=== PATIENT | female | born 1995 | race Caucasian/White ===

== ENCOUNTER → 2022-03-10 | Outpatient (CLI) | payer OTHER ==
[~2022-03-10] VITALS: Ht 157.5 cm; Wt 76.8 kg
[~2022-03-10] MED LIST: ASPIRIN 81M81 MG/TA2; PRENATAL TABLET
[2022-03-10 15:15] VITALS: BP 110/62; PULSE 89; TEMP 981
--- NOTE | 2022-03-10 15:57 | NUR ---
FHR REACTIVE AND AMNI TRACE NEG; WILL D/C AFTER REACTIVE FHR
== END ==
LOC: LDRO 14:45
DX: Z34.90 Encounter for supervision of normal pregnancy, unspecified, unspecified trimester (principal); Z3A.00 Weeks of gestation of pregnancy not specified

== ENCOUNTER 2022-04-08 00:53 | Outpatient (CLI) | payer OTHER ==
[~2022-04-08] VITALS: Ht 157.5 cm; Wt 75.9 kg
--- NOTE | 2022-04-08 01:00 | NUR ---
0100- PT PRESENTS TO LDR COMPLAINING OF CRAMPING AND DECREASED MOVEMENT, AMBULATORY TO TRIAGE 1, CHANGED INTO GOWN. 0110- EFM X2 APPLIED. DR CHAPA TO BEDSIDE. PT DENIES LEAKING FLUID, STATES SHE IS HAVING SOME SPOTTING FOR THE LAST WEEK, IS FEELING THE BABY MOVE LESS. STATES SHE HAS BEEN HAVING SOME CRAMPING TODAY WELL. DR CHAPA DISCUSSES PLAN OF CARE WITH PT. 0115- SVE BY DR CHAPA WITH ANTERIOR CERVIX. DR CHAPA DISCUSSES HYDRATION AND REST WITH PT, ANSWERS PT AND QUESTIONS. 0120- DR CHAPA STATES SHE IS OK WITH THE STRIP THAT HAS BEEN OBTAINED IT IS CURRENTLY REACTIVE. SHE STATES PT MAY BE DISMISSED AT THIS TIME. NURSING HISTORY AND ADMISSION ASSESSMENT COMPLETE. 0130- PT OFF MONITORS FOR DISMISSAL. 0147- DISMISSAL INSTRUCTIONS GIVEN AND PT VERBALIZES UNDERSTANDING. PT DISMISSED AMBULATORY TO HOME ACCOMPANIED BY SPOUSE.
[2022-04-08 01:30] VITALS: BP 132/71; PULSE 85; TEMP 97.8
== END 2022-04-08 01:47 | disposition home or self-care (01) ==
LOC: LDRO 00:53
DX: O36.8130 Decreased fetal movements, third trimester, not applicable or unspecified (principal); O47.03 False labor before 37 completed weeks of gestation, third trimester; Z3A.34 34 weeks gestation of pregnancy

== ENCOUNTER 2022-04-11 10:05 | Outpatient (CLI) | payer OTHER ==
[~2022-04-11] VITALS: Ht 157.5 cm; Wt 77.3 kg
[2022-04-11 11:00] VITALS: BP 117/62; PULSE 87
[2022-04-13] VITALS (319 sets, daily range): O2SAT 85–100
== END 2022-04-11 13:30 | disposition home or self-care (01) ==
LOC: LDRO 10:05 → LDR 10:15 → LDRO 13:30
DX: O47.03 False labor before 37 completed weeks of gestation, third trimester (principal); Z3A.34 34 weeks gestation of pregnancy
CPT/HCPCS: OP

== ENCOUNTER 2022-04-11 16:53 | Inpatient (IN) | payer OTHER ==
[2022-04-11] VITALS (9 sets, daily range): BP systolic 102–120; BP diastolic 55–68; PULSE 83–112; TEMP 98.2–98.7
[~2022-04-11] VITALS: Ht 157.6 cm; Wt 77.4 kg
--- NOTE | 2022-04-11 16:55 | NUR ---
Presents to labor and delivery. States has had some bleeing and clots since I was there. Assessment done, questions offered and answered. Pictures on phone were shown to this nurse. Small cloted noted with mild to moderate amount of bleeding noted on toilet paper.
--- NOTE | 2022-04-11 17:30 | NUR ---
Rests in bed, alert. Denies any pain or discomfort at this time.
--- NOTE | 2022-04-11 18:50 | NUR ---
LR to LFA iv site @ 125cc/hr per pump after explaination to pt and spouse. 1900 Procardia 20mg po. Celestone 12mg to R
[2022-04-11 19:05] LABS: MEAN CELL VOLUME 89 fl (80.0-100.0); MEAN CORPUSCULAR HEMOGLOBIN 30 pg (27-31); MEAN CORPUSCULAR HGB CONC 34 g/dl (33.0-37.0); PLATELET COUNT 358 K/mm3 (130-400); RED BLOOD COUNT 3.63 M/mm3 (4.10-5.30); REDCELL DISTRIBUTION WIDTH-CV 13.5 % (11.5-14.5)
[2022-04-11 19:08] LABS: HEMATOCRIT 32.2 % (37.0-47.0)
--- NOTE | 2022-04-11 19:37 | NUR ---
Dr Serrano into room. Discusses plan of care with pt and spouse. [address] Serrano, vaginal/cervical swabs with BRB, 'stringy' See Dr Serrano's notes. [address] Serrano 1945 Dr Serrano discusses new plan of care options with pt and spouse.
[2022-04-12] VITALS (731 sets, daily range): BP systolic 70–183; BP diastolic 49–133; PULSE 106–185; TEMP 97.4–98.1; O2SAT 89–100
--- NOTE | 2022-04-12 01:15 | NUR ---
Pt reports inreased pain with contractions, requesting epidural. SVE as noted. 0125 Anesthesia notified of request for epidural.
--- NOTE | 2022-04-12 01:40 | NUR ---
Judd SECY into room for epidural placement. See anesthesia record. Single shot 0146. 0158 Nausea, BP 90/51 P164, 0205 O2 @ 8l/mask per pt request stating "I don't feel very well" 0216 Ephedrine 10mg IV push. 0218 Judd SECY into room. See anesthesia record. HOB down. 0225 BP 151/79 P 97. 0230 BP 116/55 P162 0235 BP 101/55 P166 0240 BP 104/71 P153
--- NOTE | 2022-04-12 02:16 | NUR ---
EPIDURAL TURNED OFF
--- NOTE | 2022-04-12 02:20 | NUR ---
Judd RIVET TOSSER turns epidural back on. 0223D.Tan RIVET TOSSER out of room 0228pt pulse rate climbing 150-160. Judd RIVET TOSSER called to come back into room. 0229 Judd RIVET TOSSER into room. See anesthesia record for med dosing.
--- NOTE | 2022-04-12 02:40 | NUR ---
Judd CONTROL TECHNICIAN continues either in room or at L&D desk monitoring HR and BP's.
--- NOTE | 2022-04-12 02:50 | NUR ---
Judd DOCTOR OF PHARMACY orders stat EKG 0255 RT here for stat EKG. 0300 Judd DOCTOR OF PHARMACY asks for Hospitalist. Restaurant Hospitality Manager notified.
--- NOTE | 2022-04-12 03:05 | NUR ---
Hospitalist arrives on unit, reviews EKG and pt history, requests ICU assistance for cardiac monitoring. 0315 Dr Serrano on unit.
--- NOTE | 2022-04-12 03:47 | NUR ---
Adenosine 6 mg IV push by FOOD SERVICE AIDE. Dr Serrano, Hospitalist, ICU nurse, RT continue in room with this RN. Pt on jewel diameter gauger, Hospitalist and ICU reviewing cardiac tracing. Judd JARQUIN continues in room, monitoring and treating BP's.See anesthesia record
[2022-04-12 03:55] LABS: HEMOGLOBIN 10.8 g/dl (12.5-16.0); MEAN CELL VOLUME 89 fl (80.0-100.0); MEAN CORPUSCULAR HEMOGLOBIN 30 pg (27-31); MEAN CORPUSCULAR HGB CONC 34 g/dl (33.0-37.0); MEAN PLATELET VOLUME 9.7 fl (7.4-10.4); PLATELET COUNT 330 K/mm3 (130-400); RED BLOOD COUNT 3.56 M/mm3 (4.10-5.30); REDCELL DISTRIBUTION WIDTH-CV 13.4 % (11.5-14.5)
[2022-04-12 03:56] LABS: HEMATOCRIT 31.8 % (37.0-47.0)
--- NOTE | 2022-04-12 03:57 | NUR ---
ADENOSINE 12MG IV push by ASSISTANT TO THE CEO. Hospitalist, Dr Serrano, ICU Nurse, ER charge RT jerez D Smith NUCLEAR FUELS RECLAMATION ENGINEER and this RN continue in room. This RN and Dr Serrano monitoring/assessing FHT's, NUCLEAR FUELS RECLAMATION ENGINEER monitoring/treating BP's, all others monitoring/ assessing maternal cardiac tracing. FHT's continue Category 1.
--- NOTE | 2022-04-12 04:10 | NUR ---
pt deep breathing, denies chest pain or chortness of breath, reports "it's the contractions" 0412 Labetolol 10mg IV 0421 Labetolol 10mg IV
[2022-04-12 04:14] LABS: ALBUMIN 2.4 gm/dL (3.5-5.0); BILIRUBIN,TOTAL 0.4 mg/dL (0.2-1.2); CALCIUM 9.1 mg/dL (8.4-10.2); CREATININE, serum 0.74 mg/dL (0.57-1.11); MAGNESIUM 1.4 mg/dL (1.6-2.6); POTASSIUM 3.7 mmol/L (3.5-4.5); TOTAL PROTEIN 6.1 gm/dL (6.2-8.1)
[2022-04-12 04:34] LABS: TSH w REFLEX 0.38 uIU/mL (0.350-4.940)
--- NOTE | 2022-04-12 05:00 | NUR ---
MagSulfate bolus piggybacked into NS bolus to L forearm site. LR bolus to L wrist site stopped.
--- NOTE | 2022-04-12 05:30 | NUR ---
Hospitalist, ICU staff, RT, Dr Serrano, and Pavan CULLET TRUCKER out of room, this RN continues at bedside.
--- NOTE | 2022-04-12 05:30 | NUR ---
Received call from hospitalistKalyn, at approximately 0320 requesting assistance at bedside. Upon arrival, patient noted to be tachycardic, with rates 160-180s. Patient appears diaphoretic upon exam. SBPs high 90s to low 100s. Patient is alert and oriented; conversing normally with staff. She does not appear to be overly anxious or SOB. IVF infusing via gravity tubing, wide open. OB nurseMona, at bedside. Kalyn on the phone with Dr. Hartmann at time of this RN's arrival. Crash cart at bedside; defib pads in place. Orders received to administer 6mg IV dose of adenosine, which was given with Kalyn's assistance at roughly 0347 with no improvement in HR. Patient dosed with an additional 12mg adenosine IV with Kalyn's assistance at approximately 0355; transient improvement in HR noted for 3-4 seconds, however, patient then became significantly tachycardic once more with rates up to the 200s. RT at bedside to obtain 12-lead EKG. Orders received to administer 10mg IV labetolol, which was given by this RN around 0420, with a repeat dose administered at approximately 0430 by ED RN, Ly. Again, patient had temporary improvment in HR for about 4-5 seconds before resuming rates of 180s. Kalyn contacted Dr. Hartmann once more. Kalyn consults ED physician Dr. Uribe and OB physician Dr. Serrano, both of which are outside patient's room. Orders received to administer 0.5mg IV digoxin, which was given by this RN at around 0449. Orders also received to replace magnesium for a level of 1.4; 4g replacement initiated by Ly, ED RN at 0500. Per Kalyn, Dr. Hartmann recommends finishing magnesium replacment. Patient may require electrical cardioversion or early delivery if patient unable to convert to sinus rhythm chemically. Throughout the above interventions, OB nurseMona, monitoring patient and baby's vitals.
--- NOTE | 2022-04-12 06:00 | NUR ---
NS complete, LR to LFA site. Pt relaxed social, deep breathes with contractions. This RN to L&D desk. Dr Serrano continues on L&D unit.
--- NOTE | 2022-04-12 06:20 | NUR ---
0620- This RN assumes care of Pt. Decision made by Dr Serrano to procede with repeat section. Pt prepared for sugery. MILKA Whaley at bedside. Pt calm and cooperative with POC. 0640- EFM and TOCO off. Pt transported to OR via bed by this RN and Leeanne, commissary helper.
--- NOTE | 2022-04-12 09:35 | NUR ---
0849- Mala, RT at bedside in PACU for EKG. 0920- Dr Billings and operations support coordinator x2 at bedside in PACU, evaluation and POC explained. Plan to transfer to ICU for treatment. Pt placed on TELE, monitored by ICU staff. Dr Serrano at bedside also. 0919- Pt transported to Nursery via bed, okayed by . Dr Stewart, Hydraulic Hammer Operator at infant's bedside. Updates family on status and POC.
--- NOTE | 2022-04-12 09:45 | NUR ---
Arrived to the unit from OB. Patient alert and oriented and in no distress upon arrival. Denies any shortness of breath or chest pain and reports that she cannot feel that her heart is beating very quickly. Attached to all monitors and will start IV amiodarone per cardiology.
--- NOTE | 2022-04-12 09:50 | NUR ---
0950- Pt report provided to JESSA RUGGIERO.
--- NOTE | 2022-04-12 10:15 | NUR ---
1015- Pt transfered to PACU via bed. Fundus firm, half dollar sized clot noted with massage. Pericare provided. Pads changed. Area of shadowing noted on dressing, marked by this RN. Washcloth placed over area and abd binder replaced. Dent emptied. 1025- Pt transforted to ICU via bed by this RN and BALTAZAR Gomes. Pt tolerated well.
--- NOTE | 2022-04-12 11:55 | NUR ---
Confirmed with Dr. Billings that patient can eat at this time and will plan possible cardioversion for tomorrow. Ok to take PO aspirin while receiving Toradol IV.
--- NOTE | 2022-04-12 19:15 | NUR ---
Received report from BALTAZAR Morales.
--- NOTE | 2022-04-12 20:00 | NUR ---
Patient resting quietly in bed. On the phone with family. HR low 100s to 120s, irregular. Continues to receive amio drip. See IV drip titrations. All other vitals within normal limits. She reports improved pain since prior PRN medication administration. Continues to wear abdominal binder. ABD pad to midline incision with small amount of drainage noted.
[2022-04-13] VITALS (318 sets, daily range): BP systolic 95–120; BP diastolic 57–81; PULSE 74–167; TEMP 97.5–98.2; O2SAT 80–100
[2022-04-13 05:45] LABS: BASO # 0.1 K/mm3 (0.0-0.2); BASO % 0.3 % (0.0-2.0); EOS # 0.1 K/mm3 (0.0-0.7); EOS % 0.3 % (0.0-4.0); GRAN # 14.3 K/mm3 (1.4-6.5); GRAN % 75.6 % (42.2-75.2); LYMPH # 3.1 K/mm3 (1.2-3.4); LYMPH % 16.5 % (20.0-51.0); MEAN CELL VOLUME 93 fl (80.0-100.0); MEAN CORPUSCULAR HGB CONC 33 g/dl (33.0-37.0); MEAN PLATELET VOLUME 9.5 fl (7.4-10.4); MONO # 1.3 K/mm3 (0.1-0.6); MONO % 6.9 % (1.7-9.3); PLATELET COUNT 325 K/mm3 (130-400); RED BLOOD COUNT 3.22 M/mm3 (4.10-5.30)
[2022-04-13 05:56] LABS: CALCIUM 8.4 mg/dL (8.4-10.2); CREATININE, serum 0.67 mg/dL (0.57-1.11); MAGNESIUM 1.6 mg/dL (1.6-2.6); POTASSIUM 4.5 mmol/L (3.5-4.5)
[2022-04-13 05:57] LABS: HEMATOCRIT 29.8 % (37.0-47.0); HEMOGLOBIN 9.8 g/dl (12.5-16.0); MEAN CORPUSCULAR HEMOGLOBIN 30 pg (27-31)
--- NOTE | 2022-04-13 08:11 | NUR ---
RECEIVED REPORT FROM BALTAZAR CARROLL; PATIENT CURRENTLY RESTING IN BED WITH HEART RATE CONTROLLED BUT STILL IN AFIB WITH PLANS TO DO A CARDIOVERSION THIS MORNING. OTHER VITAL SIGNS ARE WITHIN NORMAL LIMITS AND AMIO IS CURRENTLY RUNNING AT THE HALF DOSE OF 0.5 MG/MIN.
[2022-04-13] MEDS ORDERED: CORDARONE200 MG/TAB PO (09:05)
--- NOTE | 2022-04-13 09:28 | NUR ---
oyster worker met with patient to complete intake. Patient had a viable baby boy via c section yesterday. Baby sent to [facility]. Due to development of Afib, patient brought to the ICU. Patient reports that she lives at home with her who is active duty and 3 children. Patient is independent with her ADL's and does not utilize any DME to assist with mobility. PCP is and she utilizes [facility] in [place] for prescriptions. Patient is scheduled to transfer back to the OB unit later today.
--- NOTE | 2022-04-13 16:20 | NUR ---
Pt arrived on unit via wheelchair from ICU. Pt ambulatory to bed. Oriented to room, bed and call light within reach. Plan of care reviewed.
--- NOTE | 2022-04-13 18:30 | NUR ---
Report recieved. Resting in bed at this time. Requested to ambulate to restroom. Assisted to sit on the side of the bed. Patient states, "it is pulling" and remains to sit dangled on the side of the bed while holding abd. Patient states, "the pain is to much, I can't get up." Assist with positioning back into bed. ABD binder in place. INC dressing remains clean, dry and intact. 1849 - Dr. Winn notified of patient's pain at this time. Patient states she is unable to ambulate due to inability to tolerate the 10/10 pain. Previously was recieving Morphin, toradol and percocet. Last recieved a percocet at 1600. Requested to increase percocet from 1 tab [address] Winn ordered to increase PO Percocet to 7.5mg x2 tabs Q4 hours PRN. 1899 - Patient updated on change in medications. Reports an upset stomach and requested to sit on bedpan. Patient had a small amount of diarrhea in the brief she was wearing, perineum care provided and bedpan placed. Voided 300mls at this time. No futher diarrhea while on the bedside. 1929 - VS and assessment completed. Percocet administered. Lights dimmed, going to pump.
--- NOTE | 2022-04-13 21:00 | NUR ---
Reports pain has improved. Assisted with standing at bedside. Reports some pulling in her incision but reports that it is tolerable. Ambulated slowly throughout room, states this was helpful with discomfort/pain. Bandage over incision removed at this time, incision edges well approximated with steri strips in place. Ambulated to restroom, voided 350mls. Returned to bed at this time without assistance. Medications administered per order. Lights dimmed, plans to pump.
[2022-04-14 03:30] VITALS: BP 112/64; PULSE 92; TEMP 98.2
[2022-04-14 08:30] VITALS: BP 105/58; PULSE 85; TEMP 97.9
[2022-04-14] MEDS ORDERED: PERCOCET 325 MG1 TA2 PO (08:39)
[2022-04-14] MEDS ORDERED: IBU600 MG PO (08:39)
[2022-04-14] MEDS ORDERED: CORDARONE200 MG/TAB PO (08:39)
[2022-04-14] MEDS ORDERED: FERRO-TIME325 MG PO (08:59)
--- NOTE | 2022-04-14 10:30 | NUR ---
Discharge instructions and follow up care reviewed with pt. Pt verbalized an understanding, agreed with the plan and states no questions or concerns at this time.
== END 2022-04-14 11:40 | disposition home or self-care (01) | DRG 786 ==
LOC: LDRO 16:53 → LDR 18:30 → LDRO 04-12 01:08 → LDR 04-12 01:09 → ICU 04-12 01:09 → OB 04-13 16:38
PROVIDERS: Internal Medicine Adult Congenital Heart Disease; Obstetrics & Gynecology; Student in an Organized Health Care Education/Training Program; ADMIT Obstetrics & Gynecology
PROC: 10D00Z1 Extraction of Products of Conception, Low, Open Approach (ICD-10-PCS; principal; 2022-04-12)
DX: O99.42 Diseases of the circulatory system complicating childbirth (principal); O60.14X0 Preterm labor third trimester with preterm delivery third trimester, not applicable or unspecified; O44.43 Low lying placenta NOS or without hemorrhage, third trimester; O99.354 Diseases of the nervous system complicating childbirth; O99.344 Other mental disorders complicating childbirth; F41.9 Anxiety disorder, unspecified; F32.A Depression, unspecified; I48.0 Paroxysmal atrial fibrillation; I08.1 Rheumatic disorders of both mitral and tricuspid valves; E87.6 Hypokalemia; J45.20 Mild intermittent asthma, uncomplicated; O99.52 Diseases of the respiratory system complicating childbirth; I25.10 Atherosclerotic heart disease of native coronary artery without angina pectoris; I95.9 Hypotension, unspecified; K21.9 Gastro-esophageal reflux disease without esophagitis; O99.62 Diseases of the digestive system complicating childbirth; G43.909 Migraine, unspecified, not intractable, without status migrainosus; E83.42 Hypomagnesemia; O99.284 Endocrine, nutritional and metabolic diseases complicating childbirth; O90.81 Anemia of the puerperium; D64.9 Anemia, unspecified; Z88.0 Allergy status to penicillin; Z37.0 Single live birth; Z86.16 Personal history of COVID-19; Z3A.35 35 weeks gestation of pregnancy; Z79.82 Long term (current) use of aspirin; Z88.2 Allergy status to sulfonamides; Z90.89 Acquired absence of other organs
CPT/HCPCS: OP; J0153; J0282; J0690; J0702; J1160; J1885; J2250; J2270; J2370; J2400; J2405; J2590; J2795; J3010; J3475; J7030; J7050; J7060; J7120

== ENCOUNTER 2023-09-12 08:20 | Outpatient (CLI) | payer OTHER ==
[~2023-09-12] VITALS: Ht 157.5 cm; Wt 85.2 kg
[~2023-09-12 08:20] MED LIST changes: +CORDARONE200 MG/TAB PO; +FERRO-TIME325 MG PO; +IBU600 MG PO; +PERCOCET 325 MG1 TA2 PO
[2023-09-12] MEDS ORDERED: KLONOPIN 1MG1 MG PO (09:04)
[2023-09-12] MEDS ORDERED: ABILIFY2 MG PO (09:05)
[2023-09-12] MEDS ORDERED: REMERON 15M15 MG/TA1 PO (09:06)
[2023-09-12] MEDS ORDERED: MINIPRESS 1M1 MG/CAP PO (09:07)
[2023-09-12] MEDS ORDERED: PROAIR HFA0.09 MG/AC IH (09:25)
[2023-09-12 09:26] VITALS: BP 109/64; PULSE 80; TEMP 98.4
[2023-09-12] MEDS ORDERED: NATURAL MAGNES200 MG PO (09:26)
[2023-09-12 12:23] VITALS: BP 109/73; PULSE 65
--- NOTE | 2023-09-12 12:43 | NUR ---
Discharge instructions given to pt.Pt verbalizes understanding.Patient escorted out by this nurse.
== END 2023-09-12 12:44 ==
LOC: COL.CAR 08:20
DX: I48.0 Paroxysmal atrial fibrillation (principal); I36.1 Nonrheumatic tricuspid (valve) insufficiency; R00.0 Tachycardia, unspecified; R55 Syncope and collapse; I34.0 Nonrheumatic mitral (valve) insufficiency
CPT/HCPCS: C1764